=== PATIENT | female | born 1975 | race Caucasian/White ===

== ENCOUNTER → 2019-04-13 | Outpatient (CLI) | payer BC ==
--- NOTE | 2019-04-13 09:06 | US ---
EXAMINATION TYPE: US thyroid st tissue head/neck DATE OF EXAM: 04/13/2019 COMPARISON: Thyroid ultrasound 2014 CLINICAL HISTORY: Rt Thyroid lobe enlargement E04.1. Right thyroid is enlarged, patient on medication GLAND SIZE: Right Lobe: 5.6 x 1.6 x 1.9cm Overall Parenchyma: homogenous Left Lobe: 5.3 x 1.7 x 1.8 cm Overall Parenchyma: homogeneous Isthmus Thickness: 0.3 cm NODULES RIGHT: # of nodules measured on right: 0 LEFT: # of nodules measured on left: 0 ISTHMUS: # of nodules measured in the isthmus: 0 Bilateral neck scanned, no evidence of lymphadenopathy. Homogeneous thyroid gland measures upper limits of normal with some small scattered nodules and image s saved. IMPRESSION: As above. No significant change from prior.
== END | disposition home or self-care (01) ==
LOC: RADUSWWP 08:12
PROVIDERS: ATTEND Internal Medicine Endocrinology, Diabetes & Metabolism
DX: E04.2 Nontoxic multinodular goiter (principal)
CPT/HCPCS: 76536